=== PATIENT | female | born 1985 | race Hispanic/Latino ===

== ENCOUNTER → 2019-03-27 | Outpatient (CLI) | payer OTHER | END | disposition home or self-care (01) | LOC: RAH 07:40 | PROVIDERS: ATTEND Family Medicine | DX: K76.0 Fatty (change of) liver, not elsewhere classified (principal); K80.20 Calculus of gallbladder without cholecystitis without obstruction | CPT/HCPCS: 76700 ==

== ENCOUNTER → 2020-12-23 | Outpatient (CLI) | payer BC | END | disposition home or self-care (01) | LOC: RAH 12:51 | PROVIDERS: ATTEND Student in an Organized Health Care Education/Training Program | DX: I08.3 Combined rheumatic disorders of mitral, aortic and tricuspid valves (principal); Q21.1 Atrial septal defect | CPT/HCPCS: 93356; 93970; A4216; C8929 ==

== ENCOUNTER 2021-06-02 06:51 | Inpatient (IN) | payer BC ==
[2021-05-28 13:22] LABS: BASOPHILS % (AUTO) 0.9 % (0.0-5.0); EOSINOPHILS % (AUTO) 1.1 % (0.0-8.0); HEMATOCRIT 32.4 % (36-48); LYMPHOCYTES % (AUTO) 17.7 % (21.0-51.0); MEAN CORPUSCULAR HEMOGLOBIN 29.3 pg (27.0-33.0); MEAN CORPUSCULAR VOLUME 88.8 fL (79-99); MONOCYTES % (AUTO) 7.8 % (3.0-13.0); NEUTROPHILS % (AUTO) 72.2 % (40.0-77.0); PLATELET COUNT (AUTO) 337 K/uL (130-400); RED BLOOD CELL COUNT(AUTO) 3.65 MIL/uL (4.00-5.50); RED CELL DISTRIBUTION WIDTH 13.2 % (11.0-15.5); WHITE BLOOD COUNT (AUTO) 7.4 K/uL (4.8-10.8)
[2021-05-28 13:32] LABS: PROTHROMBIN TIME 10.9 SEC (9.6-11.6)
[2021-05-28 13:33] LABS: PARTIAL THROMBOPLASTIN TIME 33.8 SEC (26.3-35.5)
[2021-05-28 13:38] LABS: CREATININE 0.8 mg/dL (0.5-1.5)
[~2021-06-02] VITALS: Ht 165.1 cm; Wt 101.0 kg
[2021-06-02] VITALS (18 sets, daily range): BP systolic 111–138; BP diastolic 63–97
[~2021-06-02 06:51] MED LIST: APIX2.5T PO; HYDR200T4 PO
[2021-06-02] MEDS ORDERED: LACTATED RINGERS 1000ML 1,000 ML IV ONE (07:40)
[2021-06-02] MEDS ORDERED: CEFAZOLIN SODIUM 1 GM VIAL ONE (07:40)
[2021-06-02] MEDS ORDERED: ROCURONIUM 10MG/1ML SYR 10 MG/ML ML ONE (07:58)
[2021-06-02] MEDS ORDERED: LIDOCAINE PF 100MG/5ML (2%) SYRINGE 5ML ONE (07:58)
[2021-06-02] MEDS ORDERED: SUCCINYLCHOLINE CHLORIDE 20 MG/ML 10 ML VIAL ONE (07:58)
[2021-06-02] MEDS ORDERED: PROPOFOL 10 MG/ML 20ML VIAL IV ONE (07:58)
[2021-06-02] MEDS ORDERED: MIDAZOLAM HCL 1 MG/ML 2ML VIAL ONE (07:58)
[2021-06-02] MEDS ORDERED: FENTANYL CITRATE PF 50 MCG/1 ML 2ML VIAL ONE ×2 (07:59→09:19)
[2021-06-02] MEDS ORDERED: CEFAZOLIN SODIUM 2 GM VIAL IV ONE (08:16)
[2021-06-02] MEDS ORDERED: GLYCOPYRROLATE 1 MG/5 ML SYRINGE ONE (09:37)
[2021-06-02] MEDS ORDERED: NEOSTIGMINE 5MG/5ML SYR IV ONE (09:38)
[2021-06-02] MEDS ORDERED: BISACODYL 10 MG SUPP.RECT RC PRN (10:00)
[2021-06-02] MEDS ORDERED: IBUPROFEN 600 MG TABLET PO PRN (10:00)
[2021-06-02] MEDS ORDERED: PROMETHAZINE HCL 25 MG/ML 1ML AMPULE IM PRN (10:00)
[2021-06-02] MEDS ORDERED: MEPERIDINE-PF 25 MG/ML SYG ONE ×2 (10:08→10:21)
[2021-06-02] MEDS ORDERED: ONDANSETRON 4MG INJ ONE (10:12)
[2021-06-02] MEDS: DEXTROSE 5 %-0.45 % NACL 1,000 ML IV PRN ×2 (11:25→18:58)
[2021-06-02] MEDS: PROMETHAZINE HCL 25 MG/ML 1ML AMPULE IM PRN ×2 (12:33→16:29)
[2021-06-02] MEDS: MEPERIDINE-PF 75 MG/ML SYG IM PRN ×2 (12:36→16:37)
[2021-06-02] MEDS: ACETAMINOPHEN WITH CODEINE 1 TAB TAB PO PRN ×2 (14:35→19:49)
[2021-06-02] MEDS: DOCUSATE SODIUM 100 MG CAP PO PRN (19:48)
[2021-06-02] MEDS: SIMETHICONE 80 MG TAB.CHEW PO PRN (19:48)
[2021-06-03 02:58] VITALS: BP 119/70
[2021-06-03] MEDS: DEXTROSE 5 %-0.45 % NACL 1,000 ML IV PRN ×2 (02:59→10:48)
[2021-06-03] MEDS: ACETAMINOPHEN WITH CODEINE 1 TAB TAB PO PRN ×6 (03:00→21:06)
[2021-06-03 06:48] LABS: HEMATOCRIT 29.5 % (36-48); MEAN CORPUSCULAR HEMOGLOBIN 28.4 pg (27.0-33.0); MEAN CORPUSCULAR HGB CONC 31.5 g/dL (32.0-36.0); MEAN CORPUSCULAR VOLUME 90.2 fL (79-99); RED BLOOD CELL COUNT(AUTO) 3.27 MIL/uL (4.00-5.50); RED CELL DISTRIBUTION WIDTH 14.3 % (11.0-15.5); WHITE BLOOD COUNT (AUTO) 10.5 K/uL (4.8-10.8)
[2021-06-03 07:00] VITALS: BP 108/62
[2021-06-03] MEDS: DOCUSATE SODIUM 100 MG CAP PO PRN ×2 (09:40→21:05)
[2021-06-03] MEDS ORDERED: HYDROCODONE/ACETAMINOPHEN 5/325 MG TAB PO PRN (11:00)
[2021-06-03] MEDS ORDERED: BISACODYL 10 MG SUPP.RECT RC PRN (11:00)
[2021-06-03 11:48] VITALS: BP 105/60
[2021-06-03] MEDS ORDERED: IRON SUCROSE COMPLEX 200 MG in 0.9% NACL 250ML 250 ML IVP SCH (12:30)
[2021-06-03] MEDS: SIMETHICONE 80 MG TAB.CHEW PO PRN ×3 (13:16→21:05)
[2021-06-03 15:30] VITALS: BP 111/68
[2021-06-03 19:37] VITALS: BP 111/64
[2021-06-03 23:10] VITALS: BP 110/62
[2021-06-04 03:30] VITALS: BP 110/67
[2021-06-04] MEDS: ACETAMINOPHEN WITH CODEINE 1 TAB TAB PO PRN ×2 (05:11→09:07)
[2021-06-04 06:37] LABS: MEAN CORPUSCULAR HEMOGLOBIN 29.5 pg (27.0-33.0); MEAN CORPUSCULAR HGB CONC 32.2 g/dL (32.0-36.0); MEAN CORPUSCULAR VOLUME 91.5 fL (79-99); RED BLOOD CELL COUNT(AUTO) 2.95 MIL/uL (4.00-5.50); RED CELL DISTRIBUTION WIDTH 14.6 % (11.0-15.5); WHITE BLOOD COUNT (AUTO) 10.7 K/uL (4.8-10.8)
[2021-06-04 07:00] VITALS: BP 121/70
[2021-06-04] MEDS: SIMETHICONE 80 MG TAB.CHEW PO PRN (09:06)
[2021-06-04] MEDS: DOCUSATE SODIUM 100 MG CAP PO PRN (09:06)
[2021-06-04 11:30] VITALS: BP 110/61
[2021-06-04] MEDS ORDERED: ACET-2079 PO (12:09)
== END 2021-06-04 13:10 | disposition home or self-care (01) | DRG 742 ==
LOC: DAHIP 06:51 → WSH 11:00 → EDSTATUS 11:13
PROVIDERS: ADMIT Specialist; ATTEND Specialist
PROC: 0UT90ZZ Resection of Uterus, Open Approach (ICD-10-PCS; principal; 2021-06-02 08:00)
DX: N92.0 Excessive and frequent menstruation with regular cycle (principal); D68.59 Other primary thrombophilia; D50.0 Iron deficiency anemia secondary to blood loss (chronic); T45.515A Adverse effect of anticoagulants, initial encounter; N83.202 Unspecified ovarian cyst, left side; Z86.718 Personal history of other venous thrombosis and embolism; Z79.01 Long term (current) use of anticoagulants; Z90.49 Acquired absence of other specified parts of digestive tract; Y92.89 Other specified places as the place of occurrence of the external cause
CPT/HCPCS: 36415; 80048; 84703; 85025; 85027; 85610; 85730; 86850; 86900; 86901; 87635; A4344; G0378; J0330; J0690; J1756; J2001; J2175; J2250; J2405; J2550; J2704; J2710; J3010; J3490; J7030; J7050; J7120

== ENCOUNTER → 2023-12-20 | Outpatient (CLI) | payer OTHER ==
[~2023-12-20] MED LIST changes: +ACET-2079 PO; -HYDR200T4 PO
== END | disposition home or self-care (01) ==
LOC: RAH 12:43
PROVIDERS: ATTEND Physician Assistant Medical
DX: Z13.6 Encounter for screening for cardiovascular disorders (principal)
CPT/HCPCS: 75571